=== PATIENT | male | born 1960 | race Caucasian/White ===

== ENCOUNTER 2022-03-08 07:28 | Outpatient (CLI) | payer BC, SELFPAY ==
[2022-03-08 11:54] LABS: Albumin* 4.3 g/dL (3.3-5.0); Chloride* 104 mmol/L (96-114); Sodium* 139 mmol/L (135-149)
[2022-03-08 11:55] LABS: Potassium* 4.6 mmol/L (3.6-5.1)
[2022-03-08 11:56] LABS: Cholesterol* 201 mg/dL (90-199)
[2022-03-08 11:57] LABS: Alanine Aminotransferase* 34 U/L (4-50); Alkaline Phosphatase* 108 U/L (40-150); Aspartate Amino Transferase* 29 U/L (12-35); Bilirubin Total* 0.5 mg/dL (0.1-1.5); Blood Urea Nitrogen* 18 mg/dL (7-30); Carbon Dioxide* 28 mmol/L (20-32); Creatinine* 0.8 mg/dL (0.5-1.5); Estimated Glomerular Filt Rate 101 ml/min; Glucose* 150 mg/dL (60-115); Triglycerides* 144 mg/dL (40-149)
[2022-03-08 11:58] LABS: HDL Cholesterol* 51 mg/dL (>=40); LDL Cholesterol Calculated 121 mg/dL (<100)
[2022-03-08 12:30] LABS: PSA Screen* 2.45 ng/mL (0.10-4.00)
== END 2022-03-08 07:29 | disposition home or self-care (01) ==
LOC: NFLDREF 07:28
PROVIDERS: PCP Family Medicine; Visit Provider Family Medicine
DX: E78.5 Hyperlipidemia, unspecified (principal); Z12.5 Encounter for screening for malignant neoplasm of prostate
CPT/HCPCS: 80053; 80061; 84153

== ENCOUNTER 2023-05-21 07:40 | Outpatient (CLI) | payer BC, SELFPAY ==
--- OUTSIDE RECORDS SUMMARY | 2023-05-23 12:36 | XMS_ITS | Clinical Summary ---
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 PCP - General 10/03/20
== END 2023-05-21 07:41 | disposition home or self-care (01) ==
LOC: NFLDREF 05-23 12:27
PROVIDERS: PCP Family Medicine; Referring Provider Family Medicine; Visit Provider Family Medicine
DX: Z00.00 Encounter for general adult medical examination without abnormal findings (principal); E78.5 Hyperlipidemia, unspecified; D64.9 Anemia, unspecified; R73.01 Impaired fasting glucose; Z12.5 Encounter for screening for malignant neoplasm of prostate
CPT/HCPCS: 80053; 80061; G0103

== ENCOUNTER 2023-05-23 08:38 | Outpatient (CLI) | payer BC, SELFPAY ==
--- OUTSIDE RECORDS SUMMARY | 2023-05-23 08:46 | XMS_ITS | Clinical Summary ---
Author Name Unknown Organization [facility] Address [place], [place] [address] Care Team Providers Care Solutions Market Consultant Name Role Phone Pcp, No Primary Care Provider Unavailabl e Allergies No known active allergies Medications Medication Sig Dispensed Refills Start Date End Date Status albuterol HFA (VENTOLIN HFA) 90 mcg/actuation inhaler Inhale 1-2 Puffs by mouth every 4 hours if needed. 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 Personal history of surgery to other major organs, presenting hazards to health 07/26/2006 Immunizations Name Administration Dates Next Due Td (Age >=7 Years) 06/20/2006 Family History Medical History Relation Name Comments Hypertension Father Good Health Mother Relation Name Status Comments Father Alive Mother Alive Social History Tobacco Use Types Packs/Day Years Used Date Smoking Tobacco: Former Cigarettes Q uit: 05/13/1997 Smokeless Tobacco: Never Tobacco Cessation:Counseling Given: Yes Alcohol Use Standard Drinks/Week Comments No 0 (1 standard drink = 0.6 oz pur e alcohol) Sex and Gender Information Value Date Recorded Sex Assigned at Not on file Gender Identity Not on file Sexual Orientation Not on file Obstetrics History Last Filed Vital Signs Vital Sign Reading Time Taken Comments Blood Pressure 120/76 08/18/2013 2:15 PM CDT Pulse 61 08/18/2013 2:15 PM CDT Temperature 36.7 ??C (98 ??F) 06/16/2012 5:53 PM [employer] Respiratory Rate 18 08/23/2009 3:34 PM CDT Oxygen Saturation 93% 08/18/2013 2:15 PM CDT Inhaled Oxygen Concentration - - Weight 95.4 kg (210 lb 6.4 oz) 06/16/2012 5:53 P M [employer] Height - - Body Mass Index - - Plan of Treatment Health Maintenance Due Date Last Done Comments COVID-19 vaccine series (#1) 1960 Tdap 1971 Depression screening for age 12+ 1972 HIV for age 15-65 1975 BMI (ht and wt on same day) for age 18+ 1978 Hepatitis C screening for ag e 18-79 1978 Zoster (shingles) series for age 50+ (1 of 2) 2010 Lipids for age 45-75 06/20/2011 06/20/2006 Tetanus booster 06/20/2016 06/20/2006 Influenza for age 50-64 01/11/2023 Colonoscopy through age 75 08/19/202308/18, 08/18/2013 Pneumococcal series for age 6-64 Aged Out No longer eligible b ased on patient's age to complete this topic Care Teams Solutions Market Consultant Relationship Specialty Start Date End Date Pcp, No . PCP - General 10/03/20
== END 2023-05-23 08:39 | disposition home or self-care (01) ==
PROVIDERS: PCP Family Medicine; Visit Provider Family Medicine
DX: Z00.00 Encounter for general adult medical examination without abnormal findings (principal); E11.9 Type 2 diabetes mellitus without complications; E78.5 Hyperlipidemia, unspecified; D50.9 Iron deficiency anemia, unspecified; I10 Essential (primary) hypertension; R73.01 Impaired fasting glucose
CPT/HCPCS: 82043; 82570

== ENCOUNTER 2023-07-16 09:02 | Outpatient (CLI) | payer BC, SELFPAY | END 2023-07-16 09:03 | disposition home or self-care (01) | LOC: NFLDREF 07-29 17:52 | PROVIDERS: PCP Family Medicine; Referring Provider Family Medicine; Visit Provider Family Medicine | DX: R30.0 Dysuria (principal); N34.2 Other urethritis; E11.9 Type 2 diabetes mellitus without complications | CPT/HCPCS: 87086; 87186 ==

== ENCOUNTER 2023-08-15 07:29 | Outpatient (CLI) | payer BC, SELFPAY ==
--- OUTSIDE RECORDS SUMMARY | 2023-08-19 06:45 | XMS_ITS | Clinical Summary ---
Author Name Unknown Organization [facility] Address [place], [place] [address] Care Team Providers Care Clinical Social Work Aide Name Role Phone Pcp, No Primary Care [...] 36.7 ??C (98 ??F) 06/16/2012 5:53 PM CRUSHER ASSEMBLER Respiratory Rate 18 08/23/2009 3:34 PM CDT Oxygen Saturation 93% 08/18/2013 2:15 PM CDT Inhaled Oxygen Concentration - - Weight 95.4 kg (210 lb 6.4 oz) 06/16/2012 5:53 P M CRUSHER ASSEMBLER Height - - Body Mass Index - - Plan of Treatment Health Maintenance Due Date Last Done Comments Tdap 1971 Depression screening for age 12+ 1972 HIV for age 15-65 1975 BMI (ht and wt on same day) for age 18+ 1978 Hepatitis C screening for ag e 18-79 1978 Zoster (shingles) series for age 50+ (1 of 2) 2010 Lipids for age 45-75 06/20/2011 06/20/2006 Tetanus booster 06/20/2016 06/20/2006 COVID-19 vaccine series (2022-24 season) 2023 Colonoscopy through age 75 08/19/202308/18, 08/18/2013 Influenza for age 50-64 01/12/2024 Pneumococcal series for age 6-64 Aged Out No longer eligible b ased on patient's age to complete this topic Procedures Procedure Name Priority Date/Time Associated Diagnosis Comments LIPID PANEL Timed 06/20/2006 12:15 PM CRUSHER ASSEMBLER from Last 3 Months or Most Recently Relevant to Health Maintenance Results * (ABNORMAL) LIPID PANEL (06/20/2006 12:15 PM CRUSHER ASSEMBLER) CHOLESTEROL,TOTAL 203(H) 110 - 199 mg/dL [facility] TRIGLYCERIDES 139 <150 mg/dL [facility] HDL CHOLESTEROL 56 >40 mg/dL [facility] CHOL/HDL RATIO 3.63 <4.51 [facility] LDL CHOLESTEROL 119 <131 mg/dL [facility] PATIENT STATUS Fasting [facility] 06/20/2006 12:1 5 PM CRUSHER ASSEMBLER 06/20/2006 12:15 PM CRUSHER ASSEMBLER Stephen Lainez MD CHEMISTRY [facility] [address] [place] [address] from Last 3 Months or Most Recently Relevant to Health Maintenance Care Teams Clinical Social Work Aide Relationship Specialty Start Date End Date Pcp, No . PCP - General 10/03/20
== END 2023-08-15 07:30 | disposition home or self-care (01) ==
LOC: NFLDREF 08-19 06:42
PROVIDERS: PCP Family Medicine; Referring Provider Family Medicine; Visit Provider Family Medicine
DX: E78.5 Hyperlipidemia, unspecified (principal); E11.9 Type 2 diabetes mellitus without complications
CPT/HCPCS: 80061; 84450; 84460

== ENCOUNTER 2023-11-06 15:35 | Outpatient (CLI) | payer BC, SELFPAY ==
--- OUTSIDE RECORDS SUMMARY | 2023-11-08 11:22 | XMS_ITS | Clinical Summary ---
Author Organization [facility] Address [place], [place] [address] Care Team Providers Care Anesthesia Associate Name Role Phone Pcp, No Primary Care [...] 36.7 ??C (98 ??F) 06/16/2012 5:53 PM HEAD OF MOBILE Respiratory Rate 18 08/23/2009 3:34 PM CDT Oxygen Saturation 93% 08/18/2013 2:15 PM CDT Inhaled Oxygen Concentration - - Weight 95.4 kg (210 lb 6.4 oz) 06/16/2012 5:53 P M [employer] Height - - Body Mass Index - [...] Comments LIPID PANEL Timed 06/20/2006 12:15 PM [employer]BILE from Last 3 Months or Most Recently Relevant to Health Maintenance Results * (ABNORMAL) LIPID PANEL (06/20/2006 12:15 PM HEAD OF MOBILE) CHOLESTEROL,TOTAL 203(H) 110 - 199 mg/dL [facility] TRIGLYCERIDES 139 <150 mg/dL [facility] HDL CHOLESTEROL 56 >40 mg/dL [facility] CHOL/HDL RATIO 3.63 <4.51 [facility] LDL CHOLESTEROL 119 <131 mg/dL [facility] PATIENT STATUS Fasting [facility] 06/20/2006 12:1 5 PM [employer] 06/20/2006 12:15 PM [employer] Stephen Lainez MD CHEMISTRY [facility] [address] [phone] from Last 3 Months or Most Recently Relevant to Health Maintenance Care Teams Anesthesia Associate Relationship Specialty Start Date End Date Pcp, No . PCP - General 10/03/20
== END 2023-11-06 15:36 | disposition home or self-care (01) ==
LOC: NFLDREF 11-08 11:20
PROVIDERS: PCP Family Medicine; Referring Provider Family Medicine; Visit Provider Family Medicine
DX: E78.5 Hyperlipidemia, unspecified (principal); E11.9 Type 2 diabetes mellitus without complications
CPT/HCPCS: 80061

== ENCOUNTER 2024-08-20 07:30 | Outpatient (CLI) | payer BC, SELFPAY | END 2024-08-20 07:31 | disposition home or self-care (01) | LOC: NFLDREF 08-24 18:15 | PROVIDERS: PCP Family Medicine; Referring Provider Family Medicine; Visit Provider Family Medicine | DX: E11.9 Type 2 diabetes mellitus without complications (principal); E78.5 Hyperlipidemia, unspecified; I10 Essential (primary) hypertension | CPT/HCPCS: 80053; 80061; 82043; 82570 ==

== ENCOUNTER 2024-11-26 07:04 | Outpatient (CLI) | payer BC, SELFPAY ==
--- NOTE | 2024-11-26 08:31 | P.ANES_ITS ---
Anesthesia Charges Start Date/Time Anesthesia Start Date: 11/26/24 Anesthesia Start Time: 07:55 Stop Date/Time Anesthesia Stop Date: 11/26/24 Anesthesia Stop Time: 08:28 Coding CPT Codes CPT Codes: AZAEL LWSam INTST NDSC NOS - [id number] ([id number]) P2 - PATIENT W/MILD SYST DISEASE, QX - MACHINE TACK PULLER SVC W/ MD MED DIRECTION, QK - PILLOWCASE CLEANER 2-4 CNCRNT ANES PROC
--- NOTE | 2024-11-26 08:31 | W.ANESCHARGE ---
Anesthesia Charges Start Date/Time Anesthesia Start Date: 11/26/24 Anesthesia Start Time: 07:55 Stop Date/Time Anesthesia Stop Date: 11/26/24 Anesthesia Stop Time: 08:28 Coding CPT Codes CPT Codes: AZAEL LWSam INTST NDSC NOS - [id number] ([id number]) P2 - PATIENT W/MILD SYST DISEASE, QX - PIANO MECHANIC APPRENTICE SVC W/ MD MED DIRECTION, QK - CRM FUNCTIONAL ANALYST 2-4 CNCRNT ANES PROC
--- NOTE | 2024-11-26 09:23 | P.ANES_ITS ---
Anesthesia Charges Start Date/Time Anesthesia Start Date: 11/26/24 Anesthesia Start Time: 07:55 Stop Date/Time Anesthesia Stop Date: 11/26/24 Anesthesia Stop Time: 08:28 Coding CPT Codes CPT Codes: AZAEL LWR INTST NDSC NOS - [id number] ([id number]) P2 - PATIENT W/MILD SYST DISEASE, QK - TANK WASHER 2-4 CNCRNT ANES PROC, QX - QUALITY CONTROL DIRECTOR SVC W/ MD MED DIRECTION
--- NOTE | 2024-11-26 09:23 | W.ANESCHARGE ---
Anesthesia Charges Start Date/Time Anesthesia Start Date: 11/26/24 Anesthesia Start Time: 07:55 Stop Date/Time Anesthesia Stop Date: 11/26/24 Anesthesia Stop Time: 08:28 Coding CPT Codes CPT Codes: AZAEL LWR INTST NDSC NOS - [id number] ([id number]) P2 - PATIENT W/MILD SYST DISEASE, QK - JUNIOR BUSINESS ANALYST 2-4 CNCRNT ANES PROC, QX - EXTRACTION SUPERVISOR SVC W/ MD MED DIRECTION
== END 2024-11-26 07:05 | disposition home or self-care (01) ==
LOC: OP CLINIC 07:05
PROVIDERS: PCP Family Medicine; Visit Provider Surgery
DX: Z12.11 Encounter for screening for malignant neoplasm of colon (principal); D12.0 Benign neoplasm of cecum; D12.2 Benign neoplasm of ascending colon; D12.3 Benign neoplasm of transverse colon; K57.30 Diverticulosis of large intestine without perforation or abscess without bleeding
CPT/HCPCS: 00811; 00812; 45385; 88305; J2704